=== PATIENT | female | born 1965 | race Caucasian/White ===

== ENCOUNTER 2021-11-22 13:11 | Emergency (ER) | payer BC, SELFPAY ==
[2021-11-22] VITALS (10 sets, daily range): BP systolic 120–149; BP diastolic 70–103; PULSE 76–95; RESP 12–17; TEMP 36.8; O2SAT 92–100; BMI 25.9
--- NOTE | 2021-11-22 13:46 | CRLHL7_ITS ---
For Patients: As a result of the Century Cures Act, medical imaging exams and procedure reports are released immediately into your electronic medical record. You may view this report before your referring provider. If you have questions, please contact your health care provider. Indication: Injury and pain Technique: Left elbow 2 views Comparison: None Findings/Impression: Limited two-view radiographs of the left elbow demonstrate no discrete fracture. However, the lateral view is suboptimal for evaluation of effusion and underlying fracture cannot entirely be excluded. Soft tissue swelling overlying the olecranon and distal humerus is noted. Recommend repeat imaging with better positioning on the lateral if clinically feasible. Dictated by López Lehman MD @ 11/22/2021 4:08:26 PM (Electronically Signed)
--- NOTE | 2021-11-22 13:46 | CRLHL7_ITS ---
For Patients: As a result of the Cures Act, medical imaging exams and procedure reports are released immediately into your electronic medical record. You may view this report before your referring provider. If you have questions, please contact your health care provider. Indication: Fall and injury Technique: 2 views. Comparison: None. Impression: Small left apical pneumothorax. Moderately displaced left mid clavicle fracture. There is approximately 1 shaft with inferior displacement of the distal fracture fragment. Findings discussed with Dr. Elias Mcgee at 3:33 p.m. 11/22/2021 Dictated by López Lehman MD @ 11/22/2021 3:40:51 PM (Electronically Signed)
--- NOTE | 2021-11-22 13:47 | CRLHL7_ITS ---
For Patients: As a result of the Century Cures Act, medical imaging exams and procedure reports are released immediately into your electronic medical record. You may view this report before your referring provider. If you have questions, please contact your health care provider. INDICATION: Fell. Head injury. TECHNIQUE: CT images were acquired through the cervical spine. Axial, sagittal and coronal reconstructions are reviewed. FINDINGS: Mild mid cervical flexion multilevel spondylosis. Alignment is otherwise normal. Mild osteoarthritic changes at the C1-C2 articulations. The odontoid process, body and posterior elements of C2 are intact. The atlas is intact. Degenerative disc space narrowing with marginal osteophytes are most prominent at C5-6, but are also noted at each level between C3 and C7. At C5-6 there is moderate bony central spinal canal stenosis and bilateral neural foraminal narrowing. Some calcifications within the nuchal ligament. IMPRESSION: 1. No evidence of acute cervical spine fracture or traumatic malalignment. 2. Multilevel cervical spondylosis as described. 3. At C5-6 there is moderate central spinal canal stenosis and bilateral neural foraminal stenosis. Please note that all CT scans at this facility use dose modulation, iterative reconstruction, and/or weight-based dosing when appropriate to reduce radiation dose to as low as reasonably achievable. Dictated by Carlos Espinoza MD @ 11/22/2021 3:10:02 PM (Electronically Signed)
--- NOTE | 2021-11-22 13:47 | CRLHL7_ITS ---
For Patients: As a result of the Cures Act, medical imaging exams and procedure reports are released immediately into your electronic medical record. You may view this report before your referring provider. If you have questions, please contact your health care provider. INDICATION: Fell. Head injury. Hematoma. TECHNIQUE: CT images were acquired from foramen magnum to vertex without contrast. FINDINGS: Lateral 3rd and 4th ventricles are normal in size and shape. No evidence of acute intracranial hemorrhage. No subdural or epidural fluid collections. No mass effect. Preservation of mondragon-white interface. No evidence of focal infarction. No posterior fossa hemorrhage or mass effect. There is focal asymmetric scalp swelling over the left parietal region which could relate to recent trauma. No evidence of skull fracture. Mild mucosal thickening in the ethmoid air cells. IMPRESSION: 1. No evidence of acute intracranial abnormality. 2. Left parietal scalp swelling. Please note that all CT scans at this facility use dose modulation, iterative reconstruction, and/or weight-based dosing when appropriate to reduce radiation dose to as low as reasonably achievable. Dictated by Carlos Espinoza MD @ 11/22/2021 3:05:18 PM (Electronically Signed)
--- NOTE | 2021-11-22 13:48 | CRLHL7_ITS ---
For Patients: As a result of the Cures Act, medical imaging exams and procedure reports are released immediately into your electronic medical record. You may view this report before your referring provider. If you have questions, please contact your health care provider. INDICATION: Fall TECHNIQUE: Chest 2 views. COMPARISON: None. FINDINGS: Cardiovascular and mediastinum: Heart size and vasculature are normal in caliber and appearance. Lungs and pleural spaces: Small left apical pneumothorax without mediastinal shift. No focal consolidation or effusion. Bones and soft tissues: Moderately displaced left mid clavicle fracture. IMPRESSION: Small left apical pneumothorax without mediastinal shift. Moderately displaced left mid clavicle fracture. Findings discussed with Dr. Elias Mcgee at 3:33 p.m. 11/22/2021 Dictated by López Lehman MD @ 11/22/2021 3:39:17 PM (Electronically Signed)
[2021-11-22] MEDS: ONDANSETRON 2 MG/ML inj 4 MG IVP (13:58)
[2021-11-22] MEDS: MORPHINE 4 MG/ML INJ IVP ×4 (13:58→16:55)
[2021-11-22] MEDS: 0.9 % SODIUM CHLORIDE 1000 ml 1,000 ML IV (13:58)
[2021-11-22 14:03] LABS: Basophils Absolute Auto 0.04 K/uL (0.00-0.30); Basophils Percent Auto 0.7 % (0.0-3.0); Eosinophils Absolute Auto 0.17 K/uL (0.00-0.50); Hematocrit 41.8 % (33.0-51.0); Hemoglobin* 13.9 gm/dL (12.0-16.0); Immature Granulocytes Abs Auto 0.01 K/uL (0.00-0.30); Lymphocytes Absolute Auto 1.17 K/uL (0.90-2.90); Lymphocytes Percent Auto 20.8 % (20-44); Mean Corpuscular HGB Conc 33 gm/dL (32-36); Mean Corpuscular Hemoglobin 31 pg (26-34); Mean Corpuscular Volume 93 fL (80-100); Monocytes Percent Auto 9.1 % (0.0-11.0); Neutrophils Absolute Auto 3.72 K/uL (1.7-7.0); Neutrophils Percent Auto 66.2 % (42.0-72.0); Platelet Count* 378 K/uL (140-440); RDW Coefficient of Variation % 12.6 % (11.5-15.5); Red Blood Count 4.51 m/uL (4.00-5.20); White Blood Count* 5.62 K/uL (4.50-11.00)
[2021-11-22 14:06] LABS: Slide Review Reflex No
[2021-11-22 14:16] LABS: Chloride* 103 mmol/L (96-114); Potassium* 3.7 mmol/L (3.6-5.1); Sodium* 140 mmol/L (135-149)
[2021-11-22 14:19] LABS: Blood Urea Nitrogen* 18 mg/dL (7-30); Carbon Dioxide* 27 mmol/L (20-32); Creatinine* 0.8 mg/dL (0.5-1.5); Est. Creatinine Clearance* 64.95; Estimated Glomerular Filt Rate 86 ml/min
[2021-11-22 14:20] LABS: Calcium* 9.8 mg/dL (8.4-10.6); Glucose* 100 mg/dL (60-115)
--- NOTE | 2021-11-22 14:41 | ED_ITS ---
HPI - Extremity Injury (Upper) General Date Seen: 11/22/21 Chief Complaint: Extremity Pain/Injury, Upper Stated Complaint: Fell and landed on shoulder and side Time Seen by Provider: 11/22/21 13:28 Source: patient Mode of arrival: ambulatory Limitations: no limitations History of Present Illness HPI narrative: Patient is a 56-year-old female who presents here with her significant other for evaluation of a fall, she was out walking her dog it was rather large dog jerked her forward, she fell on her left upper extremity, on her shoulder, hitting her head, and her neck. She says she did not lose consciousness but she does not have a good recollection of the situation, with some mild amnesia. She complains of pain in her left clavicle, along with her left anterior ribs, and her left elbow. Is able to walk with no problems, denies any numbness tingling or weakness, she is not nauseous and did not throw up. This occurred less than 30 minutes ago. They are from [place] just visiting here. complaint: injury to: left, shoulder and arm Related Data Home Medications Medication Instructions Recorded Confirmed bupropion HCl PO 11/22/21 duloxetine PO 11/22/21 Allergies Allergy/AdvReac Type Severity Reaction Status Date / Time No Known Drug Allergies Allergy Verified 11/22/21 13:30 Review of Systems Status of ROS: Reports: 10 or more systems reviewed and unremarkable except as noted in History and below [facility] Social History Smoking Status: Former smoker Do you use any of these nicotine containing products: None Second hand tobacco smoke exposure: No How often do you have a drink containing alcohol: 2-3 times a week AUDIT-C Alcohol total score: 3 Non-prescribed substance use: marijuana (any form) Exam Narrative: Exam Narrative: Patient is seen in room 8, is a significant deformity noted of her left clavicle, some mild tenting. Any sort of breathing in causes pain over the left side of her chest. And she is tender on the anterior just underneath her left breast. Her pupils are equal round reactive to light her GCS is 15/15, her neck is supple full range of motion is listed in flexion extension lateral flexion and rotation. No tenderness on palpation. Some abrasion noted over the occipital area. Chest shows good air entry bilaterally, but she does splint on the left side when takes a deep breath in. No tenderness to thoracic region she has some abrasions noted over left posterior area of her ribs, but no tenderness to palpation. Abdomen is soft and scaphoid there is no guarding no past splenomegaly bowel sounds are normal. There is a small she bruise on her left patella, but she has full range of motion of her knees bilaterally, and hips. Good cap refill, and she is able to bear weight and walk. There is a bruise over her left lateral elbow region. With the small hematoma, range of motion of her elbows bilaterally are normal. Const: Vital Signs, click to edit/add: Vital Signs - 24 hr 11/22/21 13:26 Temperature 98.2 F Pulse Rate [Pulse Oximeter] 94 Respiratory Rate 16 Blood Pressure [Ri ght Upper Arm] 147/103 H Pulse Oximetry 100 Oxygen Delivery Me thod Room Air Course Reevaluation(s) Reevaluation #1: I spoke to the patient there is a small pneumothorax that is incompletely seen in the left lung, given this fact, I spoke to the radiologist who recommended a chest CT with IV contrast of the great vessels, and also further look for rib fractures. I spoke to the patient and they are in agreement Time: 16:23 Reevaluation #2: Patient doing well with the sling, I spoke to Dr. Sheppard and we will discharge her home, the pneumothorax is less than 5%, small rib fracture seen on the left, along with a clavicle fracture. hers will call her tomorrow and set up follow-up, she will return back to the ER if increasing chest pain shortness of breath or other issues,. Time: 18:21 Vital Signs Vital signs: Initial Vital Signs Temperature 98.2 F 11/22/21 13:26 Temperature Source Temporal Artery Scan 11/22/21 13:26 Pulse Rate 94 11/22/21 13:26 Respiratory Rate 16 11/22/21 13:26 Blood Pressure 147/103 H 11/22/21 13:26 Blood Pressure Mean 117 11/22/21 13:26 Blood Pressure Position Supine 11/22/21 13:26 Pulse Oximetry 100 11/22/21 13:26 Oxygen Delivery Method 11/22/21 13:26 Vital Signs Temperature 98.2 F 11/22/21 13:26 Pulse Rate 94 11/22/21 13:26 Respiratory Rate 16 11/22/21 13:26 Blood Pressure 147/103 H 11/22/21 13:26 Pulse Oximetry 100 11/22/21 13:26 Oxygen Delivery Method 11/22/21 13:26 Temperature 98.2 F 11/22/21 13:26 Pulse Rate 94 11/22/21 13:26 Respiratory Rate 16 11/22/21 13:26 Blood Pressure 147/103 H 11/22/21 13:26 Pulse Oximetry 100 11/22/21 13:26 Oxygen Delivery Method 11/22/21 13:26 MDM - Extremity Injury (Upper) MDM Narrative Medical decision making narrative: Patient is seen after a fall, CT of her head and neck will be done, along with an x-ray of her chest, elbow, and clavicle. Differential Diagnosis Differential diagnosis: Likely sprain and strain of wrist, fracture of wrist, finger sprain, dislocation of finger, Colles' fracture, fracture of hand, dislocation of shoulder, fracture of humerus and fracture of clavicle Medical Records Attestation: I reviewed the patient's medical records. Lab Data Attestation: I reviewed the patient's lab results. Labs: Lab Results 11/22/21 11/22/21 Range/Units 13:30 13:30 WBC 5.62 (4.50-11.00) K/uL RBC 4.51 (4.00-5.20) m/uL Hgb 13.9 (12.0-16.0) gm/dL Hct 41.8 (33.0-51.0) % MCV 93 (80-100) fL MCH 31 (26-34) pg MCHC 33 (32-36) gm/dL RDW Coeff of Sherlyn 12.6 (11.5-15.5) % Plt Count 378 (140-440) K/uL Neut % (Auto) 66.2 (42.0-72.0) % Lymph % (Auto) 20.8 (20-44) % [place] % (Auto) 9.1 (0.0-11.0) % Eos % (Auto) 3.0 (0.0-7.0) % Baso % (Auto) 0.7 (0.0-3.0) % Neut # (Auto) 3.72 (1.7-7.0) K/uL Lymph # (Auto) 1.17 (0.90-2.90) K/uL [place] # (Auto) 0.50 (0.00-0.90) K/UL Eos # (Auto) 0.17 (0.00-0.50) K/uL Baso # (Auto) 0.04 (0.00-0.30) K/uL Abs Immat Gran (auto) 0.01 (0.00-0.30) K/uL Sodium 140 (135-149) mmol/L Potassium 3.7 (3.6-5.1) mmol/L Chloride 103 (96-114) mmol/L Carbon Dioxide 27 (20-32) mmol/L BUN 18 (7-30) mg/dL Creatinine 0.8 (0.5-1.5) mg/dL Estimated Creat Clear 64.95 Estimated GFR 86 ml/min Glucose 100 (60-115) mg/dL Calcium 9.8 (8.4-10.6) mg/dL Imaging Data CT scan - chest: Radiologist's impression: Patient: IVY CROWE Facility: [facility] Site . Site : 1965 Study: XRay Extremity Left CLAVICLE 2V-11/22/2021 2:36:17 PM Ordering Physician: Arely Griffin Final Report: Indication: Fall and injury Technique: 2 views. Comparison: None. Impression: Small left apical pneumothorax. Moderately displaced left mid clavicle fracture. There is approximately 1 shaft with inferior displacement of the distal fracture fragment. Findings discussed with Dr. Elias Mcgee at 3:33 p.m. 11/22/2021 Dictated by López Lehman MD @ 11/22/2021 3:40:51 PM (Electronic Signature) Patient: IVY CROWE Facility: [facility] Site . Site : 1965 Study: XRay Extremity Left ELBOW 2 VIEW-11/22/2021 2:36:52 PM Ordering Physician: Arely Griffin Final Report: Indication: Injury and pain Technique: Left elbow 2 views Comparison: None Findings/Impression: Limited two-view radiographs of the left elbow demonstrate no discrete fracture. However, the lateral view is suboptimal for evaluation of effusion and underlying fracture cannot entirely be excluded. Soft tissue swelling overlying the olecranon and distal humerus is noted. Recommend repeat imaging with better positioning on the lateral if clinically feasible. Dictated by López Lehman MD @ 11/22/2021 4:08:26 PM (Electronic Signature) Final Report Patient: [facility] Facility: [facility] Site . Site : 1965 Study: CT Head WITHOUT-11/22/2021 2:14:17 PM Ordering Physician: Arely Griffin Final Report: INDICATION: Fell. Head injury. Hematoma. TECHNIQUE: CT images were acquired from foramen magnum to vertex without contrast. FINDINGS: Lateral 3rd and 4th ventricles are normal in size and shape. No evidence of acute intracranial hemorrhage. No subdural or epidural fluid collections. No mass effect. Preservation of mondragon-white interface. No evidence of focal infarction. No posterior fossa hemorrhage or mass effect. There is focal asymmetric scalp swelling over the left parietal region which could relate to recent trauma. No evidence of skull fracture. Mild mucosal thickening in the ethmoid air cells. IMPRESSION: 1. No evidence of acute intracranial abnormality. 2. Left parietal scalp swelling. Please note that all CT scans at this facility use dose modulation, iterative reconstruction, and/or weight-based dosing when appropriate to reduce radiation dose to as low as reasonably achievable. Dictated by Carlos Espinoza MD @ 11/22/2021 3:05:18 PM (Electronic Signature) Patient: [facility] Facility: [facility] Site . Site : 1965 Study: CT Spine Cervical WITHOUT-11/22/2021 2:14:37 PM Ordering Physician: Arely Griffin Final Report: INDICATION: Fell. Head injury. TECHNIQUE: CT images were acquired through the cervical spine. Axial, sagittal and coronal reconstructions are reviewed. FINDINGS: Mild mid cervical flexion multilevel spondylosis. Alignment is otherwise normal. Mild osteoarthritic changes at the C1-C2 articulations. The odontoid process, body and posterior elements of C2 are intact. The atlas is intact. Degenerative disc space narrowing with marginal osteophytes are most prominent at C5-6, but are also noted at each level between C3 and C7. At C5-6 there is moderate bony central spinal canal stenosis and bilateral neural foraminal narrowing. Some calcifications within the nuchal ligament. IMPRESSION: 1. No evidence of acute cervical spine fracture or traumatic malalignment. 2. Multilevel cervical spondylosis as described. 3. At C5-6 there is moderate central spinal canal stenosis and bilateral neural foraminal stenosis. Please note that all CT scans at this facility use dose modulation, iterative reconstruction, and/or weight-based dosing when appropriate to reduce radiation dose to as low as reasonably achievable. Dictated by Carlos Espinoza MD @ 11/22/2021 3:10:02 PM (Electronic Signature) Patient: IVY CROWE Facility: [facility] Site . Site : 1965 Study: CT Chest 75CC ISOVUE 370-11/22/2021 4:59:31 PM Ordering Physician: Arely Griffin Final Report: INDICATION: Fall. Pneumo. Clavicle fracture. TECHNIQUE: CT chest was acquired with 75 mL Isovue 370 IV contrast. Coronal and sagittal reformats were generated. COMPARISON: Chest x-ray from 11/22/2021. FINDINGS: Thyroid: Unremarkable. Thoracic lymph nodes: No enlarged supraclavicular, mediastinal, hilar, or axillary lymph nodes. Mediastinum and esophagus: Unremarkable. Heart and vasculature: Unremarkable. Lungs: Left basilar atelectasis. Pleura: Tiny left pneumothorax. Chest wall: Unremarkable. Upper abdomen: Unremarkable. Bones: Comminuted mildly displaced left clavicle fracture. Mildly displaced fracture of the left lateral 5th rib. No other obvious fractures. IMPRESSION: 1. Fractures of the left clavicle and 5th rib. 2. Tiny left pneumothorax. 3. No other traumatic injury in the chest. Please note that all CT scans at this facility use dose modulation, iterative reconstruction, and/or weight-based dosing when appropriate to reduce radiation dose to as low as reasonably achievable. Dictated by Germán Mejia MD @ 11/22/2021 6:13:32 PM (Electronic Signature) Discharge Plan Discharge Clinical Impression: Clavicle fracture, shaft, Pneumothorax on left Patient Disposition: Home w/ Parent or Adult Condition: Stable Instructions: Clavicle Fracture (ED), Arm Fracture in Adults (ED), Chest Tubes (DC) Additional Instructions: Home rest pain medication as needed. Follow-up for repeat chest x-ray in the next 2 days. Report back to emergency room if increasing chest pain shortness of breath, or worsening. As I would be worried that the pneumothorax is expanding. Followup with in 2 days, Dr. Sheppard is a nurse will call on your cell phone and set that up. Consider wearing the sling for the next 10 days, limiting alcohol with the percocet and using stool softner. I would also consider following up with [facility] back in [place] to make sure it is Prescriptions: No Action duloxetine PO bupropion HCl PO Follow Up/Referrals: Kim Sheppard MD [Staff Physician] - Provider,Not a Local [Primary Care Provider] - Stand Alone Forms: [facility] Info Instructions
--- NOTE | 2021-11-22 15:56 | CRLHL7_ITS ---
For Patients: As a result of the Cures Act, medical imaging exams and procedure reports are released immediately into your electronic medical record. You may view this report before your referring provider. If you have questions, please contact your health care provider. INDICATION: Fall. Pneumo. Clavicle fracture. TECHNIQUE: CT chest was acquired with 75 mL Isovue 370 IV contrast. Coronal and sagittal reformats were generated. COMPARISON: Chest x-ray from 11/22/2021. FINDINGS: Thyroid: Unremarkable. Thoracic lymph nodes: No enlarged supraclavicular, mediastinal, hilar, or axillary lymph nodes. Mediastinum and esophagus: Unremarkable. Heart and vasculature: Unremarkable. Lungs: Left basilar atelectasis. Pleura: Tiny left pneumothorax. Chest wall: Unremarkable. Upper abdomen: Unremarkable. Bones: Comminuted mildly displaced left clavicle fracture. Mildly displaced fracture of the left lateral 5th rib. No other obvious fractures. IMPRESSION: 1. Fractures of the left clavicle and 5th rib. 2. Tiny left pneumothorax. 3. No other traumatic injury in the chest. Please note that all CT scans at this facility use dose modulation, iterative reconstruction, and/or weight-based dosing when appropriate to reduce radiation dose to as low as reasonably achievable. Dictated by Germán Mejia MD @ 11/22/2021 6:13:32 PM (Electronically Signed)
--- NOTE | 2021-11-22 19:00 | ED.NURSE ---
Pt c/o pain. MDs updated, but recommend pt start [employer] [facility] medication. Pt assisted in obtaining [employer] rx. Pt awaiting ride from spouse.
== END 2021-11-22 19:10 | disposition home or self-care (01) ==
PROVIDERS: Emergency Provider Family Medicine
DX: S42.002A Fracture of unspecified part of left clavicle, initial encounter for closed fracture (principal); W19.XXXA Unspecified fall, initial encounter; J93.9 Pneumothorax, unspecified
CPT/HCPCS: 36415; 70450; 71046; 71260; 72125; 73000; 73070; 80048; 85025; 96374; 96375; 96376; 99285; J2270; J2405; J7030; Q9967